=== PATIENT | male | born 1975 | race Two or more races ===

== ENCOUNTER 2020-02-06 13:55 | Emergency (ER) | payer SELFPAY ==
[~2020-02-06] VITALS: Ht 175.3 cm; Wt 80.0 kg
--- NOTE | 2020-02-06 14:30 | NUR ---
PT TO ROOM
[2020-02-06] MEDS ORDERED: HYDROmorphone 1 MG/ML, 1ML INJ ONE (14:55)
[2020-02-06] MEDS ORDERED: ONDANSETRON ODT 4 MG ONE (14:55)
--- NOTE | 2020-02-06 15:02 | NUR ---
PT MEDICATED PER MD ORDER.
--- NOTE | 2020-02-06 15:11 | NUR ---
PT TRANSPORTED TO CT.
[2020-02-06 15:39] VITALS: BP 139/85
--- NOTE | 2020-02-06 16:21 | NUR ---
BREAK RN: DR GILL AT BEDSIDE, D/C POC DISCUSSED AND QUESTIONS ANSWERED.
[2020-02-06] MEDS ORDERED: HYDROmorphone 2 MG/ML, 1ML IM ONE (17:00)
[2020-02-06] MEDS ORDERED: ONDANSETRON ODT 4 MG PO ONE (17:00)
== END 2020-02-06 17:13 | disposition home or self-care (01) ==
LOC: ED 15:05
DX: S92.001A Unspecified fracture of right calcaneus, initial encounter for closed fracture (principal); W18.39XA Other fall on same level, initial encounter; Y93.89 Activity, other specified; Y92.098 Other place in other non-institutional residence as the place of occurrence of the external cause; Y99.8 Other external cause status
CPT/HCPCS: 29515; 73610; 73700; 96372; 99284; J1170; Q0162